=== PATIENT | female | born 1975 | race Caucasian/White ===

== ENCOUNTER → 2020-06-29 13:17 | Outpatient (CLI) | payer OTHER, SELFPAY ==
--- NOTE | 2020-06-29 13:18 | US_ITS ---
PROCEDURE: US TRANSVAGINAL CLINICAL INDICATION: US T/V- Menorrhagia COMPARISON: No exams were available for comparison FINDINGS: UTERUS: 7cm x 5cmx 5cm with a combined endometrial thickness of 7.3mm LEFT OVARY: [id number] with a volume of 7.6ml. RIGHT OVARY: [id number] with a volume of 4.4ml. The uterus is retroverted. There are bilateral ovarian follicles measuring to 1.6 cm on the left. No cul-de-sac fluid. Bilateral ovarian blood flow is noted. IMPRESSION: Retroverted uterus otherwise negative Dictated by: Rick Dc MD 06/29/2020 15:24 Rick Dc MD in OV 06/29/2020 15:24
== END ==
PROVIDERS: PCP Family Medicine; Visit Provider Obstetrics & Gynecology
DX: N92.0 Excessive and frequent menstruation with regular cycle (principal)
CPT/HCPCS: 76830

== ENCOUNTER → 2020-09-17 12:50 | Outpatient (CLI) | payer OTHER, SELFPAY ==
[2020-09-17 13:21] LABS: Urine Pregnancy, HCG Qual. Negative (Negative)
[2020-09-17 13:24] LABS: Basophils % 0.4 % (0.1-2.0); Eosinophils # 0.1 K/mm3 (0.0-0.4); Hematocrit 45.3 % (37.0-47.0); Hemoglobin 15.2 g/dL (12.2-16.2); Lymphocytes # 1.4 K/mm3 (0.7-4.5); Lymphocytes % 16.8 % (10-50); Mean Corpuscular HGB Conc 33.7 g/dL (31.8-35.4); Mean Corpuscular Hemoglobin 27.7 pg (27.0-31.2); Mean Corpuscular Volume 82.2 fl (81-99); Mean Platelet Volume 7.5 fl (7.4-10.4); Monocytes # 0.5 K/mm3 (0.1-1.0); Monocytes % 5.4 % (1.7-9.3); Neutrophils # 6.5 K/mm3 (1.8-7.8); Neutrophils % 76.4 % (37.0-80.0); Platelet Count 302 K/mm3 (142-424); Red Blood Count 5.51 M/mm3 (4.20-5.40); Red Cell Distribution Width 13.1 % (11.5-17.5); White Blood Count 8.5 K/mm3 (4.8-10.8)
[2020-09-17 14:06] LABS: Chloride 103 mmol/L (98-107); Sodium 128 mmol/L (136-145)
[2020-09-17 14:07] LABS: Potassium 4.3 mmoL/L (3.5-5.1)
[2020-09-17 14:09] LABS: Alanine Aminotransferase 13 U/L (12-78); Alkaline Phosphatase 65 U/L (38-126); Aspartate Amino Transferase 27 U/L (14-36); Bilirubin,Total 2.3 mg/dl (0.2-1.3); Blood Urea Nitrogen 13 mg/dl (7-17); Estimated Glomerular Filt Rate 91 ml/min (>60); GFR (African American) 111 ML/MIN (>60)
[2020-09-17 14:10] LABS: Anion Gap 3.3 mEq/L (5-15); Calcium 9.9 mg/dl (8.4-10.2); Carbon Dioxide 26 mmol/L (22.0-30.0); Globulin 2.5 g/dL (1.3-3.2); Glucose 77 mg/dl (74-100); Total Protein,Serum 7.5 g/dl (6.3-8.2)
[2020-09-17 15:02] LABS: Coronavirus 19 IgG Antibody Positive (Negative); Coronavirus 19 IgM Antibody Negative (Negative)
== END ==
PROVIDERS: Visit Provider Obstetrics & Gynecology
DX: Z01.818 Encounter for other preprocedural examination (principal); Z20.822 Contact with and (suspected) exposure to COVID-19; N93.8 Other specified abnormal uterine and vaginal bleeding
CPT/HCPCS: 36415; 80053; 81025; 85025; 86328

== ENCOUNTER 2020-09-20 07:18 | Day surgery (SDC) | payer OTHER, SELFPAY ==
[2020-09-15 14:02] VITALS: BMI 33.3
[2020-09-20] VITALS (10 sets, daily range): BP systolic 104–129; BP diastolic 51–76; PULSE 66–96; RESP 12–18; TEMP 36.3–36.6; O2SAT 92–100
--- NOTE | 2020-09-20 07:52 | P.PN_ITS ---
[facility] Anesthesia Checklist - Patient Identification Patient Identification: Arm Band - Structural Data Admitted From: Home Planned Operative Procedure/s: Hysteroscopy, D&C, Novasure Ablation Consent for Planned Operative Procedure(s) Verified: Yes Verified Documents: Surgical Consent, History and Physical - NPO Status Verified Time NPO: 00:00 - Additional verifications Anesthesia Reactions: No Hx Blood Transfusions: No Blood Transfusion Reaction: No - Airway Assessment C-Spine Mobility Assessed: Yes (mp2) TMJ Mobility Assessed: Yes Dentition: Good Dentition - Neurological Assessment Level of Consciousness: Awake, Alert - Anesthesia Plan Anesthesia Risk discussed: Yes Anesthesia Plan: Verified ASA Class: II Anesthesia Type: General [facility] History I have reviewed the patient's past medical history: Yes Medical History: Denies:: Cancer, Diabetes Mellitus Type 1, Diabetes Mellitus Type 2, Internal Pacemaker, MRSA, Seizures *Have you ever received a pneumonia vaccine?: No *Have you received a flu vaccine this season?: No Other Medical History: Denies: Blood Transfusion Reaction Anesthesia experience/problems:: nac Other Surgeries: Yes: Tubal Ligation, Other (Right Wrist). No: Pacemaker Amputation: No Fractures: No - *Social History Last grade of school completed: High school graduate Smoking Status: Never smoker Alcohol Intake: never Substance Use Type: denies use *Occupational Status:: employed Housing: house Household Members: spouse *Travel in the last 8 weeks: None Family Hx:: Cancer, Diabetes, Heart Attack, Hypertension
--- NOTE | 2020-09-20 10:07 | HMH.ANESI ---
[facility] Anesthesia Record Part I Intake, IV Amount: 800 Estimated blood loss (mL): 0 Urine output (mL): 0 Blood Pressure: 105/64 SaO2: 92 Pulse Rate: 72 Respiratory Rate: 12 Temperature: 97.8 F Patient is:: Awake, Stable Stable to PACU at:: 10:05
--- NOTE | 2020-09-20 10:29 | P.OP_ITS ---
Date of procedure: 09/20/20 Pre-op Diagnosis:: Heavy menstrual bleeding Severe dysmenorrhea Post-op Diagnosis:: same Procedure performed:: D&C Hysteroscopy Novasure Endometrial Ablation Surgeon:: Jennifer Parsons MD PAGE TECHNICIAN:: Antoine Washington Anesthesia: GETA Estimated blood loss (mL): 5 Operative findings:: grossly normal uterine cavity with no polyps or fibroids visualized Operative note:: The patient was taken to the OR where general anesthesia was administered without difficulty. She was prepped/draped in the normal sterile fashion in supine position. The cervix was dilated until hysteroscope could be accomodated. The hysteroscope was introduced through the cervix into the uterus and the cavity surveyed. No abnormalities were observed within the cavity. Sharp curettage was performed and the specimen sent for pathology. The Novasure device was introduced into the uterus. The cavity length was measured at 5cm a nd width at 4cm, and the cavity assessment was successful. The Novasure was deployed and the endometrial ablation was completed in 72 seconds, and without complication. All instruments were removed from her vagina, she was awakened from anesthesia and taken to PACU in stable condition. Condition: stable Disposition: PACU Specimens:: endometrial curettings Complications:: none
== END 2020-09-20 11:06 | disposition home or self-care (01) ==
PROVIDERS: PCP Psychiatry & Neurology Sleep Medicine; Visit Provider Obstetrics & Gynecology
PROC: 0U5B8ZZ Destruction of Endometrium, Via Natural or Artificial Opening Endoscopic (ICD-10-PCS; CPT 58563; principal; 2020-09-20 09:00)
DX: N92.0 Excessive and frequent menstruation with regular cycle (principal); N94.6 Dysmenorrhea, unspecified; Z98.51 Tubal ligation status; Z80.9 Family history of malignant neoplasm, unspecified; Z83.3 Family history of diabetes mellitus; Z82.49 Family history of ischemic heart disease and other diseases of the circulatory system; Z82.3 Family history of stroke
CPT/HCPCS: 58563; 96374; J2405